=== PATIENT | male | born 1960 | race Caucasian/White ===

== ENCOUNTER 2016-08-19 11:45 | Outpatient (CLI) | payer OTHER ==
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
--- NOTE | 2016-08-19 14:18 | RAD ---
LEFT KNEE 3 VIEWS: Date: 08/19/16 HISTORY: Chronic knee pain. FINDINGS: There are very mild arthritic changes of the knee. There is some medial compartment narrowing. Minim al spur formation at patellofemoral compartment. There is an exostosis like projection off the poste rior femur. This is asymmetric as compared to the opposite side. This has a benign overall appearanc e. This could represent a sessile osteochondroma. It does not have the typical appearance of a tug-t ype lesion related to chronic stress, although this would be a possibility. The cortex is slightly i ndistinct along the margins of this, but no gross bony destruction. 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 Given the slight c ortical irregularity I would recommend MRI with and without contrast for complete assessment. POS: [facility]
== END 2016-08-19 11:46 | disposition home or self-care (01) ==
LOC: MADRAD 11:45
PROVIDERS: ATTEND Orthopaedic Surgery
DX: M17.0 Bilateral primary osteoarthritis of knee (principal)